=== PATIENT | male | born 1970 | race African-American/Black ===

== ENCOUNTER 2016-10-19 10:48 | Emergency (ER) | payer OTHER ==
[~2016-10-19] VITALS: Ht 177.8 cm; Wt 106.0 kg
[2016-10-19 11:24] VITALS: Ht 177.8 cm; Wt 106.0 kg
[2016-10-19] MEDS ORDERED: IBUPROFEN 800 MG TAB PO ONE (12:30)
--- NOTE | 2016-10-19 13:19 | RADRPT ---
PROCEDURE: XR Sacrum and Coccyx CLINICAL INDICATION: Fall TECHNIQUE: AP, lateral, and oblique views were submitted. COMPARISON: None FINDINGS: Osseous structures: appear well mineralized and intact with no fracture or destructive process iden tified. Joint spaces: the sacroiliac joints appear unremarkable without significant erosions or sclerosis. Soft tissues: appear unremarkable. IMPRESSION: Unremarkable sacrum and coccyx study. Physician Lucille Date Time Electronically viewed and signed by Lasha Evans Physician on 10/19/2016 13:18 /
[2016-10-19] MEDS ORDERED: NAPR-260 PO (13:29)
[2016-10-19] MEDS ORDERED: HYDR-906 PO (13:29)
[2016-10-19] MEDS ORDERED: CYCL-319 PO (13:29)
--- NOTE | 2016-10-19 15:57 | ERD ---
DATE OF SERVICE: 10/19/2016 HISTORY OF PRESENT ILLNESS: The patient is a 46-year-old male coming in complaining of lower coccyx tailbone pain after he fell at [employer] earlier today. Patient slipped on wet concrete and fell on his tailbone. He is able to ambulate. He has not taken medications for his symptoms. Sarmad es any numbness or tingling and denies saddle anesthesia, did not hit his head and no loss of consci ousness, no vomiting. PAST MEDICAL HISTORY: Denies. ALLERGIES TO MEDICATIONS: DENIES. SURGICAL HISTORY: Ortho surgery to his knee and wrist. SOCIAL HISTORY: Smokes marijuana. REVIEW OF SYSTEMS: A 12-point review of systems was done. Refer to HPI for positives, all other sy stems negative. PHYSICAL EXAMINATION: VITAL SIGNS: Temperature is 98.1, pulse 98, blood pressure is 160/86, respiratory 18, O2 saturation 98% on room air. Pain intensity 8/10. GENERAL: The patient is well-appearing, well-nourished, no acute distress. BACK: The patient has tenderness to palpation over the lower coccyx region. There are no obvious deformities or crepitus felt on exam. HEENT: Atraumatic. Conjunctivae are pink. Pupils equal, round, and reactive to light. There is no s cleral icterus. Tympanic membranes clear bilaterally. Oropharynx clear. No nystagmus or photophobia . CHEST: Clear to auscultation bilaterally. There are no rales, wheezes or rhonchi. HEART: Regular rate and rhythm. No murmurs, clicks, rubs or gallops. No S3 or S4. ABDOMEN: Soft, nontender and nondistended. Good bowel sounds. No rebound or guarding. No gross sherry tonitis. No gross organomegaly or masses. No Maciel sign or McBurney point tenderness. EXTREMITIES: Patient's strength is within normal limits bilateral lower extremities. Patient ambula stephanie without difficulty. EMERGENCY ROOM COURSE: The patient had 3-view x-ray done of the sacrum and coccyx, which showed unr emarkable sacrum and coccyx study. The patient was given Long[place] and Zofran in the ER for pain. DIAGNOSIS: Contusion of the tailbone. MEDICAL DECISION MAKING: I have low suspicion for acute fracture or dislocation. Low suspicion for cauda equina, low suspicion for neuro deficit to the lower extremities as patient's exam was within normal limits. I have low suspicion for diskitis. DISCHARGE: The patient is discharged stable. The patient given prescription for [place], naproxen an d Flexeril and told to follow up with primary care within 1 to 2 days for reevaluation. Patient was told if symptoms progress or worsen to return to the ER. All other questions answered at the time of discharge. Discharge summary given at the time of departure. Patient understood and complied wi th plan. Dictated By: MCKINLEY BASURTO for RADHA GARCIA/NTS Conf#: [id number] DID#: [id number]
== END 2016-10-19 14:06 | disposition home or self-care (01) ==
LOC: FTE 10:48 → EDBD 10:48 → FTE 14:06
DX: S30.0XXA Contusion of lower back and pelvis, initial encounter (principal); W01.0XXA Fall on same level from slipping, tripping and stumbling without subsequent striking against object, initial encounter; Y92.002 Bathroom of unspecified non-institutional (private) residence as the place of occurrence of the external cause
CPT/HCPCS: 72220; Z7502; Z7610